=== PATIENT | female | born 1985 | race Two or more races ===

== ENCOUNTER 2020-01-02 03:07 | Inpatient (IN) | payer MEDICAID, OTHER ==
[~2020-01-02] VITALS: Ht 160 cm; Wt 104.3 kg
[2020-01-02] MEDS ORDERED: LACT. RINGERS/OXYTOCIN 20UNITS 1,000 ML IV SCH (03:34)
[2020-01-02] MEDS ORDERED: LACTATED RINGER'S 1,000 ML IV SCH (03:34)
[2020-01-02] MEDS ORDERED: PHISODERM TOP SOLN 240ML BTL TOP PRN (03:45)
[2020-01-02] MEDS ORDERED: WITCH HAZEL-GLYCERIN PAD TOP PRN (03:45)
[2020-01-02] MEDS ORDERED: CARBOPROST TROMETHAMINE 250 MCG/1ML VIAL IM PRN (03:45)
[2020-01-02] MEDS ORDERED: PENICILLIN G POT 5MIL/D5 50ML 50 ML IV ONE (03:45)
[2020-01-02] MEDS ORDERED: DERMOPLAST 60ML BOTTLE TOP PRN (03:45)
[2020-01-02] MEDS ORDERED: METHYLERGONOVINE MALEATE 0.2 MG/ML AMP IM PRN (03:45)
[2020-01-02] MEDS ORDERED: LIDOCAINE 2%HCL (LOCAL ANESTH.) INJ 20ML MDV ID ONE (03:45)
[2020-01-02 04:59] LABS: Basophils # (auto) 0 10 ^3/uL (0-0.2); Basophils % (auto) 0.4 % (0.0-2.0); Eosinophils # (auto) 0 10 ^3/uL (0-0.8); Eosinophils % (auto) 0.4 % (0.0-7.0); Hematocrit 40.1 % (36.0-46.0); Hemoglobin 13.2 g/dL (12.2-16.2); Lymphocytes # (auto) 1.5 10 ^3/uL (0.4-5.4); Lymphocytes % (auto) 17.1 % (10.0-50.0); Mean Corpuscular Hemoglobin 30.3 pg (28.0-32.0); Mean Corpuscular Hgb Conc. 33.1 g/dL (32.0-36.0); Mean Corpuscular Volume 91.6 fL (80.0-100.0); Monocytes # (auto) 0.5 10 ^3/uL (0-1.3); Monocytes % (auto) 5.2 % (0.0-12.0); Neutrophils # (auto) 6.6 10 ^3/uL (1.6-8.6); Neutrophils % (auto) 76.9 % (37.0-80.0); Nucleated Red Blood Cells % 0.1 %; Platelet Count (auto) 213 10^3/uL (140-450); Red Blood Cells 4.37 10^6/uL (4.0-5.20); Red Cell Distribution Width 14.3 % (11.8-14.3); White Blood Cell 8.6 10^3/uL (4.4-10.8)
[2020-01-02 05:04] LABS: Urine Amorphous Crystal FEW /hpf (None Seen); Urine Bacteria MOD /hpf (None Seen); Urine Blood Negative /uL (Negative); Urine Specific Gravity 1.007 (1.001-1.035); Urine WBC 3 /hpf (0 - 5)
[2020-01-02 05:13] LABS: Potassium 3.5 mmol/L (3.5-5.1)
[2020-01-02] MEDS ORDERED: ACETAMINOPHEN 325 MG TAB PO PRN (05:15)
[2020-01-02 05:16] LABS: Amphetamine Screen, Urine NEGATIVE (NEGATIVE); Barbiturate Scree,Urine NEGATIVE (NEGATIVE); Benzodiazephine Screen, Urine NEGATIVE (NEGATIVE); Cannabinoid Screen, Urine NEGATIVE (NEGATIVE); Cocaine Screen, Urine NEGATIVE (NEGATIVE); Opiate Scree,Urine NEGATIVE (NEGATIVE); Phencyclidine Screen, Urine NEGATIVE (NEGATIVE)
[2020-01-02 05:17] LABS: Albumin 2.5 g/dL (3.4-5.0); BUN/Creatinine Ratio 7.7
[2020-01-02 05:20] LABS: Bilirubin, Total 0.2 mg/dL (0.2-1.0); Total Protein 6.8 g/dL (6.4-8.2)
[2020-01-02 05:30] LABS: INR 0.94 (0.9-1.15)
[2020-01-02] MEDS: IBUPROFEN 600 MG TAB PO PRN ×3 (05:35→19:12)
--- NOTE | 2020-01-02 05:40 | NUR ---
Ambulation: Patient OOB with standby assistance by RN. Patient ambulated to bathroom with steady gait. Patient able to void 500ml without difficulty. [facility] teaching provided with returned demonstration by patient. Clean gown provided and bed linen changed. Patient ambulated back to bed with steady gait and no distress noted.
[2020-01-02 06:40] VITALS: BP 117/56
[2020-01-02] MEDS ORDERED: PENICILLIN G POTASSIUM 2,500,000 UNITS in D5W 5% 50 ML IV SCH (07:45)
--- NOTE | 2020-01-02 09:00 | NUR ---
Teaching: Reviewed information in [facility] booklet with patient. Discussed benefits of and risks associated with not via blower installer. Discussed different positions, proper latch, feeding cues, and baby-led . Provided information of medication side effects related to . All questions and concerns addressed at this time. Patient verbalized understanding of information.
[2020-01-02 11:20] VITALS: BP 118/56
[2020-01-02 15:19] VITALS: BP 116/64
[2020-01-02] MEDS ORDERED: PREN-96 PO (16:38)
[2020-01-02 19:10] VITALS: BP 117/57
[2020-01-02 23:00] VITALS: BP 115/59
[2020-01-03 03:00] VITALS: BP 134/86
[2020-01-03 07:01] VITALS: BP 104/53
--- NOTE | 2020-01-03 08:00 | NUR ---
DR. OLGUIN AT NURSES STATION, GIVEN STATUS UPDATE ON PT. RECEIVED ORDERS TO DISCHARGE PT HOME.
[2020-01-03 08:07] LABS: RPR Non Reactive (Non Reactive)
--- NOTE | 2020-01-03 09:20 | NUR ---
Discharge: Discharge instructions given as ordered. Pt encouraged to follow up with PASTE WORKER as instructed. All questions and concerns addressed. Patient verbalized understanding. Medication reconciliation completed and copy given to patient. Patient encouraged to prepare to depart unit.
[2020-01-03 09:50] VITALS: BP 104/53
--- NOTE | 2020-01-03 09:50 | NUR ---
Discharge: Patient taken to vehicle ambulatory via steady gait with all personal belongings, accompanied by staff and family member. No distress noted at time of departure, no adverse changes in status since initial assessment.
== END 2020-01-03 09:50 | disposition home or self-care (01) | DRG 560 ==
LOC: OBSVTOIN 03:07 → LDRP 03:07
PROVIDERS: ADMIT Obstetrics & Gynecology; ATTEND Obstetrics & Gynecology
PROC: 10E0XZZ Delivery of Products of Conception, External Approach (ICD-10-PCS; principal; 2020-01-03)
DX: O99.824 Streptococcus B carrier state complicating childbirth (principal); Z37.0 Single live birth; Z3A.39 39 weeks gestation of pregnancy
CPT/HCPCS: 36415; 59025; 59409; 80053; 80307; 81001; 84112; 85025; 85610; 85730; 86592; 86850; 86900; 86901; 96365; 96366; 96372; G0378; J2540; J2590; J7060